=== PATIENT | female | born 1955 | race Caucasian/White ===

== ENCOUNTER 2020-02-03 13:52 | Inpatient (IN) ==
[2020-02-03] MEDS ORDERED: ACETAMINOPHEN 500 MG TABLET PO STA (18:39)
[2020-02-03] MEDS ORDERED: SODIUM CHLORIDE 0.9% 1,000 ML IV STA (18:39)
[2020-02-03 20:18] LABS: Basophils % 0.4 % (0.0-0.8); Hematocrit 36.8 VOL% (35.7-47.0); Hemoglobin 12.1 GM/DL (12.0-16.0); Hgb & Hct Comparison OK; Immature Granulocytes % 1.3 %; Immature Granulocytes Absolute 0.07 #; Lymphocytes # 1.2 10*3/uL (1.4-4.0); Lymphocytes % 23.5 % (21.3-54.2); Mean Corpuscular HGB Conc 32.9 GM/DL (32-36); Mean Corpuscular Hemoglobin 29 PG (27-34); Monocytes # 0.4 10*3/uL (0.11-0.8); Monocytes % 6.9 % (1.7-12.7); Neutrophils # 3.5 10*3/uL (1.4-7.4); Neutrophils % 67.9 % (38.7-73.9); Platelet Count 222 T/CUMM (130-400)
[2020-02-03 20:41] LABS: Albumin/Globulin Ratio 0.6 RATIO (1.1-2.2); Anion Gap 12.8 MMOL/L (5.0-15.0); Bilirubin,Total 0.5 MG/DL (0.2-1.0); C-Reactive Protein Inflamm 4.78 MG/DL (0-0.32); Globulin 4.8 G/DL (2.3-3.5); Osmolality,Calculated 257.9 MOS/KG (273-304); Potassium 3.8 MMOL/L (3.5-5.1)
[2020-02-03 20:50] LABS: Lymphocytes 31 % (20-55); Monocytes 5 % (2-15); Reactive Lymphocytes 1+; Segmented Neutrophils 64 % (50-85); Total Cells Counted 100
[2020-02-03 20:51] LABS: Atypical Lymphocytes 1+; Platelet Estimate Normal
[2020-02-03 20:52] LABS: Hypochromasia 1+; Polychromasia 1+
[2020-02-03] MEDS ORDERED: AZITHROMYCIN INJ 500 MG in SODIUM CHLORIDE 0.9% 250 ML IV STA (20:57)
[2020-02-03 21:03] LABS: Apearance,Urine CLEAR (Clear); Bacteria,Urine Occasional /HPF (Few); Bilirubin,Urine Negative (Negative); Blood, Urine Negative (Negative); Glucose,Urine (UA) Negative (Negative); Ketones,Urine 20 mg/dL (Negative); Mucus,Urine Occasional /LPF (Occasional); Nitrite,Urine Negative (Negative); Protein,Urine Negative; RBC,Urine 1 /HPF (0-4); Squamous Epithelial Cell,Urine Occasional /HPF (0-10); Urine Color Straw (Yellow); Urine Specific Gravity 1.003 (1.001-1.035); Urine Urobilinogen < 2.0 EU/DL (0.2-1.0); WBC,Urine 2 /HPF (0-6)
[2020-02-03 21:04] LABS: Culture Indicated,Urine Not Indicated
[2020-02-03] MEDS ORDERED: ACETAMINOPHEN 325 MG TABLET PO PRN (22:19)
[2020-02-03] MEDS ORDERED: DOCUSATE SODIUM 100 MG CAPSULE PO PRN (22:19)
[2020-02-03] MEDS ORDERED: hydrALAZINE 20 MG/1 ML VIAL IV PRN (22:19)
[2020-02-03] MEDS ORDERED: ONDANSETRON 4 MG/2 ML VIAL IV PRN (22:19)
[2020-02-03] MEDS: ENOXAPARIN 40 MG/0.4 ML SYRINGE SUBCUT SCH (23:44)
[2020-02-03] MEDS: FAMOTIDINE 20 MG TABLET PO SCH (23:45)
[2020-02-03] MEDS: cefTRIAXone 1,000 MG in SODIUM CHLORIDE 0.9% 100 ML IV SCH (23:46)
[2020-02-03] MEDS: SODIUM CHLORIDE 0.9% 1,000 ML IV SCH (23:48)
[2020-02-04 05:19] LABS: Basophils % 0.5 % (0.0-0.8); Hematocrit 32.2 VOL% (35.7-47.0); Hemoglobin 10.6 GM/DL (12.0-16.0); Hgb & Hct Comparison OK; Immature Granulocytes % 1.2 %; Immature Granulocytes Absolute 0.05 #; Lymphocytes # 1.2 10*3/uL (1.4-4.0); Lymphocytes % 27.5 % (21.3-54.2); Mean Corpuscular HGB Conc 32.9 GM/DL (32-36); Mean Corpuscular Hemoglobin 29 PG (27-34); Mean Corpuscular Volume 87.7 FL (87-102); Monocytes # 0.3 10*3/uL (0.11-0.8); Monocytes % 7.4 % (1.7-12.7); Neutrophils # 2.7 10*3/uL (1.4-7.4); Neutrophils % 63.4 % (38.7-73.9); Platelet Count 204 T/CUMM (130-400)
[2020-02-04 05:44] LABS: Anion Gap 14.9 MMOL/L (5.0-15.0); Osmolality,Calculated 276.5 MOS/KG (273-304); Potassium 3.9 MMOL/L (3.5-5.1)
[2020-02-04 06:26] LABS: Platelet Estimate Normal
[2020-02-04] MEDS ORDERED: CETIRIZINE 10 MG TABLET PO SCH (09:00)
[2020-02-04] MEDS: FAMOTIDINE 20 MG TABLET PO SCH ×2 (09:50→21:40)
[2020-02-04] MEDS: SODIUM CHLORIDE 0.9% 1,000 ML IV SCH (09:58)
[2020-02-04] MEDS: ALBUTEROL INHALER 18 GM INH SCH ×3 (13:25→19:30)
[2020-02-04] MEDS ORDERED: THYROID 60 MG TABLET PO SCH (13:30)
[2020-02-04] MEDS: HYDROXYCHLOROQUINE 200 MG TABLET PO SCH ×2 (14:00→21:40)
[2020-02-04] MEDS ORDERED: ZINC SULFATE 220 MG CAPSULE PO SCH (16:30)
[2020-02-04] MEDS ORDERED: SIMVASTATIN 10 MG TABLET PO SCH (17:00)
[2020-02-04] MEDS ORDERED: prednisoLONE ACETATE 1% OPH SUSP 5 ML BOTTLE LEFT EYE SCH (21:00)
[2020-02-04] MEDS ORDERED: DORZOLAMIDE/TIMOLOL OPH SOLN 10 ML BOTTLE LEFT EYE SCH (21:00)
[2020-02-04] MEDS ORDERED: AZITHROMYCIN INJ 500 MG in SODIUM CHLORIDE 0.9% 250 ML IV SCH (21:00)
[2020-02-04] MEDS: ENOXAPARIN 40 MG/0.4 ML SYRINGE SUBCUT SCH (21:40)
[2020-02-05] MEDS: ALBUTEROL INHALER 18 GM INH SCH ×2 (01:30→07:30)
[2020-02-05] MEDS: cefTRIAXone 1,000 MG in SODIUM CHLORIDE 0.9% 100 ML IV SCH (01:30)
[2020-02-05] MEDS: SODIUM CHLORIDE 0.9% 1,000 ML IV SCH (03:15)
[2020-02-05 07:11] LABS: Osmolality,Calculated 279.3 MOS/KG (273-304)
[2020-02-05] MEDS ORDERED: DEXAMETHASONE 4 MG/1 ML VIAL IV ONE (07:45)
[2020-02-05 08:10] LABS: Basophils % 0.2 % (0.0-0.8); Hematocrit 32.5 VOL% (35.7-47.0); Hemoglobin 10.3 GM/DL (12.0-16.0); Hgb & Hct Comparison OK; Immature Granulocytes % 1.3 %; Immature Granulocytes Absolute 0.06 #; Lymphocytes # 1.5 10*3/uL (1.4-4.0); Lymphocytes % 30.9 % (21.3-54.2); Mean Corpuscular HGB Conc 31.7 GM/DL (32-36); Mean Corpuscular Hemoglobin 29 PG (27-34); Mean Corpuscular Volume 92.1 FL (87-102); Monocytes # 0.4 10*3/uL (0.11-0.8); Monocytes % 7.7 % (1.7-12.7); Neutrophils # 2.8 10*3/uL (1.4-7.4); Neutrophils % 59.9 % (38.7-73.9); Platelet Count 243 T/CUMM (130-400)
[2020-02-05 08:15] VITALS: BP 125/81
[2020-02-05 08:35] LABS: Band Neutrophils 2 % (0-10); Lymphocytes 27 % (20-55); Monocytes 10 % (2-15); Platelet Estimate Adequate; Segmented Neutrophils 61 % (50-85); Total Cells Counted 100
[2020-02-05 08:36] LABS: Hypochromasia 1+
[2020-02-05] MEDS ORDERED: lisinopriL 10 MG TABLET PO ONE (11:30)
[2020-02-05] MEDS ORDERED: AZITHROMYCIN 250 MG TABLET PO SCH (21:00)
[2020-02-06] MEDS ORDERED: ASCORBIC ACID 500 MG TABLET PO SCH (09:00)
[2020-02-06] MEDS ORDERED: lisinopriL 20 MG TABLET PO SCH (09:00)
[2020-02-06] MEDS ORDERED: CALCIUM (CARBONATE)/VITAMIN D 600 MG-400 UNIT TABLET PO SCH (09:00)
[2020-02-06] MEDS ORDERED: OMEGA 3 ACID ETHYL ESTERS 1 GM CAPSULE PO SCH (09:00)
[2020-02-06] MEDS ORDERED: GLUCOSAMINE 500 MG TABLET PO SCH (09:00)
[2020-02-06] MEDS ORDERED: MULTIVITAMIN (CENTRUM) TABLET PO SCH ×2 (09:00)
== END 2020-02-05 08:29 | disposition home or self-care (01) ==
LOC: N.ED 13:52 → N.EDINP 21:24
PROVIDERS: ADMIT Internal Medicine; ATTEND Internal Medicine